=== PATIENT | female | born 1945 | race Hispanic/Latino ===

== ENCOUNTER 2017-06-02 08:16 | Emergency (ER) | payer MEDICARE, OTHER ==
[2017-06-02 08:36] VITALS: RESP 18; TEMP 98; O2SAT 100
--- NOTE | 2017-06-02 10:04 | ED PDOC ---
HPI: Chest Pain Time Seen by Provider: 06/02/17 09:21 Chief Complaint (Nursing): Chest Pain History Per: Patient History/Exam Limitations: no limitations Onset/Duration Of Symptoms: Gradual (since last night) Current Symptoms Are (Timing): Intermittent Episodes Severity: Moderate Quality: Pressure Associated Symptoms: Nausea. denies: Dyspnea, Diaphoresis, Syncope Modifying Factors: None Exacerbating Factors: None Alleviating Factors: None Additional History Per: Patient Additional Complaint(s): c/o midsternal chest pain last night and states she vomited times 2. states this am the chest pain comes and goes and she feels nauseous. no vomiting this am Past Medical History Reviewed: Historical Data, Nursing Documentation, Vital Signs Vital Signs: Last Vital Signs Temp 98.0 F 06/02/17 08:32 Pulse 100 H 06/02/17 08:32 Resp 18 06/02/17 08:32 BP 153/83 H 06/02/17 08:32 Pulse Ox 100 06/02/17 11:06 - Medical History PMH: HTN - Surgical History Surgical History: No Surg Hx - Family History Family History: States: Unknown Family Hx - Living Arrangements Living Arrangements: With Family - Social History Current smoker - smoking cessation education provided: No - Home Medications Home Medications: Ambulatory Orders Medication Instructions Recorded No Known Home Med 06/02/17 - Allergies Allergies/Adverse Reactions: Allergies Allergy/AdvReac Type Severity Reaction Status Date / Time No Known Allergies Allergy Verified 06/02/17 08:40 [place] Risk Score for UA/NSTEMI - [place] Risk Score Age > 64: YES 3 or more CAD Risk Factors: NO Known CAD (Stenosis greater than 50%): NO Aspirin use in past 7 days: NO Severe Angina: NO EKG ST changes greater than 0.5mm: YES [place] Score: 2 Risk %: 8% Review of Systems ROS Statement: Except As Marked, All Systems Reviewed And Found Negative Constitutional: Negative for: Fever, Chills Cardiovascular: Positive for: Chest Pain. Negative for: Palpitations, Light Headedness Respiratory: Negative for: Cough, Shortness of Breath Gastrointestinal: Positive for: Nausea, Vomiting. Negative for: Abdominal Pain , Diarrhea Neurological: Negative for: Weakness, Numbness Physical Exam - Reviewed Nursing Documentation Reviewed: Yes Vital Signs Reviewed: Yes - Physical Exam Appears: Positive for: Uncomfortable Head Exam: Positive for: ATRAUMATIC, NORMAL INSPECTION, NORMOCEPHALIC Eye Exam: Positive for: Normal appearance, EOMI, PERRL Neck: Positive for: Normal, Painless ROM, Supple Cardiovascular/Chest: Positive for: Regular Rate, Rhythm, Chest Non Tender. Negative for: Edema, Gallop, Murmur, Bradycardia, Tachycardia Respiratory: Positive for: Normal Breath Sounds. Negative for: Decreased Breath Sounds, Accessory Muscle Use, Crackles, Rales, Rhonchi, Stridor, Wheezing , Respiratory Distress Pulses-Radial (L): 2+ Pulses-Radial (R): 2+ Gastrointestinal/Abdominal: Positive for: Normal Exam, Bowel Sounds, Soft. Negative for: Tenderness Back: Positive for: Normal Inspection. Negative for: L CVA Tenderness, R CVA Tenderness Extremity: Positive for: Normal ROM. Negative for: Tenderness, Pedal Edema, Calf Tenderness, Deformity, Swelling Neurologic/Psych: Positive for: Alert, relief docking master II-XII, Oriented. Negative for: Motor/Sensory Deficits - Laboratory Results Result Diagrams: 06/02/17 09:00 06/02/17 09:00 - ECG ECG: Positive for: Interpreted By In ECG Rhythm: Positive for: Normal QRS, Sinus Rhythm, ST/T Changes Interpretation Of Abn EKG: rate of 99, no evidence of ischemia O2 Sat by Pulse Oximetry: 100 Pulse Ox Interpretation: Normal - Radiology X-Ray: Interpreted by In X-Ray Interpretation: No Acute Disease - Progress ED Course And Treament: pt seen and eval by Dr. Sesay who d/c the pt from the ed. a single neg trop r/o mi in this pt with cp for over 12 hours. pt is pain free. all of pt's questions were answered and pt agree's with plan. pt leaves ambulatory and in good spirits. Re-evaluation Time: 11:08 Condition: Improved Medical Decision Making Medical Decision Making: Time: 09:31 Plan: - EKG - B-Type Natriuretic Peptide - CMP - Lipase - Magnesium - Troponin I - CBC - Partial Thromboplastin Time - Prothrombin Time - Chest X-Ray - Urinalysis Time: 10:00 - Aspirin 325 mg PO STAT Time: 10:32 Chest X-Ray HISTORY: cp COMPARISON: None available. FINDINGS: LUNGS: No acute pulmonary disease appreciable. PLEURA: No pneumothorax or pleural fluid seen. CARDIOVASCULAR: Normal. OSSEOUS STRUCTURES: No significant abnormalities. VISUALIZED UPPER ABDOMEN: Normal. OTHER FINDINGS: None. IMPRESSION: No acute cardiopulmonary disease appreciated. Scribe Attestation: Documented by Seng Crook, acting as a scribe for Pete Pulliam M.D. Disposition - Clinical Impression Clinical Impression: Chest pain - Patient ED Disposition Is Patient to be Admitted: No Counseled Patient/Family Regarding: Studies Performed, Diagnosis, Need For Followup - Disposition Referrals: Danie Sesay MD [Staff Provider] - (as discussed with pmd) Disposition: Routine/Home Disposition Time: 11:10 Condition: GOOD Instructions: Chest Pain (DC) Forms: [employer] (Croatian)
[2017-06-02 10:09] LABS: BASO % 0.1 % (0.0-2.0); HEMOGLOBIN 14.1 g/dL (12.0-16.0); LYMPH # 1.7 K/uL (1.0-4.3); LYMPH % 10.8 % (20.0-40.0); MEAN CELL VOLUME 91.4 fl (81.0-99.0); MEAN CORPUSCULAR HEMOGLOBIN 31.1 pg (27.0-31.0); MEAN PLATELET VOLUME 8.8 fl (7.2-11.7); MONO # 1.1 K/uL (0.0-0.8); NEUT # 13.1 K/uL (1.8-7.0); NEUT % 82.1 % (50.0-75.0); NRBC % 0.1 % (0.0-0.0); RBC 4.53 Mil/uL (3.80-5.20); RED CELL DISTRIBUTION WIDTH 13.5 % (11.5-14.5)
[2017-06-02 10:19] LABS: INR 0.9 (0.9-1.2); PROTHROMBIN TIME 10.4 Seconds (9.8-13.1)
[2017-06-02 10:20] LABS: PARTIAL THROMBOPLASTIN TIME 25.8 Seconds (25.6-37.1)
[2017-06-02 10:25] LABS: ALB/GLOB RATIO 1.3 (1.0-2.1); ALBUMIN 4.5 g/dL (3.5-5.0); CALCIUM 9.4 mg/dL (8.4-10.2); GFR AFRICAN-AMERICAN > 60; GFR NON-AFRICAN AMERICAN > 60; LIPASE 48 U/L (23-300)
[2017-06-02 10:29] LABS: ALT/SGPT 32 U/L (9-52); AST/SGOT 34 U/L (14-36); BLOOD UREA NITROGEN 21 mg/dl (7-17); MAGNESIUM 1.9 MG/DL (1.6-2.3)
[2017-06-02 10:34] LABS: B-TYPE NATRIURETIC PEPTIDE 1130 pg/ml (0-900)
--- NOTE | 2017-06-02 10:34 | RAD ---
PROCEDURE: CHEST RADIOGRAPH, 1 VIEW HISTORY: cp COMPARISON: None available. FINDINGS: LUNGS: No acute pulmonary disease appreciable. PLEURA: No pneumothorax or pleural fluid seen. CARDIOVASCULAR: Normal. OSSEOUS STRUCTURES: No significant abnormalities. VISUALIZED UPPER ABDOMEN: Normal. OTHER FINDINGS: None. IMPRESSION: No acute cardiopulmonary disease appreciated.
--- NOTE | 2017-06-02 11:03 | CP.PCM.PN ---
Subjective - Date & Time of Evaluation Date of Evaluation: 06/02/17 Time of Evaluation: 10:00 - Subjective Subjective: Ms Urrutia is a privste pt of mine well known to me She developed sharp epigastric pain last night assoc with Nausea and vomiting partially relieved by Pepcid she took at home EKG: normal Labs: normal Troponin: negative I will discharge the pt to be followed up in my office Dx: Gastritis ? Gastric ulcer? Objective - Vital Signs/Intake and Output Vital Signs (last 24 hours): Temp Pulse Resp BP Pulse Ox 98.0 F 100 H 18 153/83 H 100 06/02/17 08:32 06/02/17 08:32 06/02/17 08:32 06/02/17 08:32 06/02/17 10:56 - Labs Labs: 06/02/17 09:00 06/02/17 09:00 PT 10.4 Seconds (9.8-13.1) 06/02/17 09:00 INR 0.9 (0.9-1.2) 06/02/17 09:00 APTT 25.8 Seconds (25.6-37.1) 06/02/17 09:00
[2017-06-02 11:24] VITALS: BP 130/75; PULSE 88
--- NOTE | 2017-06-03 18:11 | CARD ---
APPROVED REPORT EKG Measurement Heart [id number] <Conclusion> Normal sinus rhythm Biatrial enlargement Abnormal ECG
== END 2017-06-02 11:24 | disposition home or self-care (01) ==
LOC: H.ER 08:16
DX: K29.70 Gastritis, unspecified, without bleeding (principal); I11.9 Hypertensive heart disease without heart failure; I51.7 Cardiomegaly

== ENCOUNTER 2017-08-04 19:50 | Emergency (ER) | payer MEDICARE, OTHER ==
[2017-08-04 19:58] VITALS: BP 139/86; PULSE 79; RESP 17; TEMP 97.2; O2SAT 98
--- NOTE | 2017-08-04 20:19 | ED PDOC ---
HPI: Trauma/Fall - HPI Time Seen by Provider: 08/04/17 20:10 Chief Complaint (Nursing): Trauma Chief Complaint (Provider): fall, facial laceration History Per: Patient History/Exam Limitations: no limitations Onset/Duration Of Symptoms: Mins Location Of Injury: Left: Face Additional Complaint(s): 71 y/o female presents to the ED with a forehead laceration s/p slip and fall while taking a shower. Patient denies syncope or dizziness prior to fall. She did not sustain loss of consciousness. Patient has 2 lacerations to left side of forehead. She applied pressure dressing and came right to ED. Patient is not sure of last tetanus booster. PMD: Dr. Danie Sesay Past Medical History Reviewed: Historical Data, Nursing Documentation, Vital Signs Vital Signs: Last Vital Signs Temp 97.2 F L 08/04/17 19:55 Pulse 79 08/04/17 19:55 Resp 17 08/04/17 19:55 BP 139/86 08/04/17 19:55 Pulse Ox 98 08/04/17 19:55 - Medical History PMH: HTN - Family History Family History: States: No Known Family Hx - Living Arrangements Living Arrangements: With Family - Social History Current smoker - smoking cessation education provided: No Ex-Smoker (has not smoked in the last 12 months): No Alcohol: Occasional Drugs: Denies - Immunization History Hx Tetanus Toxoid Vaccination: No (not sure of last booster) - Home Medications Home Medications: Ambulatory Orders Medication Instructions Recorded Amoxicillin/Clavulanate [Augmentin 1 tab PO BID #14 tab 08/04/17 875 MG-125 MG] - Allergies Allergies/Adverse Reactions: Allergies Allergy/AdvReac Type Severity Reaction Status Date / Time No Known Allergies Allergy Verified 06/02/17 08:40 Review of Systems ROS Statement: Except As Marked, All Systems Reviewed And Found Negative Eyes: Negative for: Vision Change Skin: Positive for: Other (Laceration x 2 to left forehead) Neurological: Positive for: Other (denies dizziness or syncope prior to fall). Negative for: Weakness, Numbness, Incoordination, Change in Speech, Confusion, Seizures, Altered Mental Status, Dizziness Physical Exam - Reviewed Nursing Documentation Reviewed: Yes Vital Signs Reviewed: Yes - Physical Exam Appears: Positive for: Well, Non-toxic, No Acute Distress Head Exam: Negative for: ATRAUMATIC (Two 3 cm lacerations noted to the left side of forehead with exposure of subcutaneous tissue, minimal active bleeding, neurovascular intact) Skin: Positive for: Normal Color. Negative for: Rash Eye Exam: Positive for: Normal appearance, EOMI, PERRL ENT: Positive for: Normal ENT Inspection Cardiovascular/Chest: Positive for: Regular Rate, Rhythm Respiratory: Positive for: Normal Breath Sounds. Negative for: Wheezing, Respiratory Distress Back: Negative for: Vertebral Tenderness Extremity: Positive for: Normal ROM Neurologic/Psych: Positive for: Alert, canopy inspector II-XII (grossly intact), Oriented, Gait (steady). Negative for: Motor/Sensory Deficits, Aphasia, Facial Droop - ECG O2 Sat by Pulse Oximetry: 98 (RA) Pulse Ox Interpretation: Normal - Other Rad CT head X-Ray: Read By Radiologist X-Ray Interpretation: no intracranial abnormalities, facial lacerations Medical Decision Making Medical Decision Making: Time: 19:55 Impression: 71 y/o female with head injury and facual lacerations Initial Plan: * CT head * Pain meds declined Patient is requesting plastic surgeon for laceration repair. Call placed to Dr. Betancourt who states he is unable to come to ED to see patient this evening but is willing to see patient at 9:30 am in his office in [facility] for lac repair. He states that as long as the repair is completed within 24 hrs of the time of injury, it can be sutured. This was explained in detail to patient and her at bedside. Patient and agree with plan and state they can come to Dr. Betancourt's office at 9:[address] Betancourt confirmed this time in AM. Procedure Note: Wound was irrigated with normal saline and Betadine, Steri- Strips were used to loosely approximate wound edges. Sterile gauze wrap applied overlying Steri-Stripped wounds. Neurovascular intact status post placement. Patient given initial dose of Augmentin ED along with prescription for same. Advised Tylenol for pain. Patient instructed to go directly to Dr. Betancourt's office in the morning for 9:30 appointment. Scribe Attestation: Documented by Christiano Oswald acting as a scribe for EMILIANA Harkins MDibgisselle Attestation: All medical record entries made by the Scribe were at my direction and personally dictated by me. I have reviewed the chart and agree that the record accurately reflects my personal performance of the history, physical exam, medical decision making, and the department course for this patient. I have also personally directed, reviewed, and agree with the discharge instructions and disposition. Disposition - Clinical Impression Clinical Impression: Head injury, Face lacerations, Requires a booster tetanus - Patient ED Disposition Is Patient to be Admitted: No Counseled Patient/Family Regarding: Studies Performed, Diagnosis, Need For Followup, Rx Given - Disposition Referrals: Maureen Betancourt MD [Medical Doctor] - Disposition: Routine/Home Disposition Time: 21:58 Condition: STABLE Additional Instructions: PLEASE GO TO DR. BETANCOURT'S OFFICE AT 9:[address] [place] [address] ([facility] [address] [place] [address]) [place] [address] OFFICE TEL # [phone] DO NOT REMOVE BANDAGE OVERNIGHT. STARTING TOMORROW TAKE ANTIBIOTICS DIRECTED TYLENOL NEEDED FOR PAIN Prescriptions: Amoxicillin/Clavulanate [Augmentin 875 MG-125 MG] 1 tab PO BID #14 tab Instructions: Head Injury Observation (DC), Closed Head Injury, Wound Care (DC) Forms: [employer] (Polish)
[2017-08-04] MEDS ORDERED: Tdap Vaccine 0.5 ml Vial (10-64 yrs) IM ONE ×2 (20:23→20:50)
[2017-08-04] MEDS ORDERED: Amoxicillin-Clav 875-125 mg Tab PO STA (21:14)
[2017-08-04] MEDS ORDERED: Amoxicillin-Clav 875-125 mg Tab PO ONE (21:31)
--- NOTE | 2017-08-04 21:37 | CT ---
EXAM: CT Head Without Intravenous Contrast EXAM DATE/TIME: 08/04/2017 8:22 PM CLINICAL HISTORY: 71 years old, female; Injury or trauma; Fall; Initial encounter; Blunt trauma (contusions or hematomas); Consciousness not specified; Injury details: Patient states: Fell in the shower, lac left forehead TECHNIQUE: Axial computed tomography images of the head/brain without intravenous contrast. All CT scans at this facility use one or more dose reduction techniques, viz.: automated exposure control; ma/kV adjustment per patient size (including targeted exams where dose is matched to indication; i.e. head); or iterative reconstruction technique. Coronal and sagittal reformatted images were created and reviewed. COMPARISON: There are no prior studies for comparison. FINDINGS: Brain: There is mild prominence of sulci, gyri and ventricles. There is no midline shift. There are no intra-axial or extra axial mass lesions or areas of hemorrhage. Chow-white differentiation is maintained. Ventricles: See above. Bony structures: Cranial vault is intact. Soft tissues: There is left facial swelling with a small amount of soft tissue emphysema. There are multiple small cutaneous calcifications. Sinuses: There is ethmoid and right maxillary sinus the superior Ears and mastoids: Middle ears and mastoids unremarkable. Orbits: Orbital contents are unremarkable. IMPRESSION: Left facial laceration no acute intracranial abnormality
[2017-08-04] MEDS ORDERED: Benzoin Compund Tincture 30 ML TP ONE (21:53)
== END 2017-08-04 22:50 | disposition home or self-care (01) ==
LOC: H.ER 19:50
DX: S01.81XA Laceration without foreign body of other part of head, initial encounter (principal); S09.90XA Unspecified injury of head, initial encounter; W01.0XXA Fall on same level from slipping, tripping and stumbling without subsequent striking against object, initial encounter; Y92.89 Other specified places as the place of occurrence of the external cause; I10 Essential (primary) hypertension